=== PATIENT | female | born 2000 | race Two or more races ===

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

== ENCOUNTER 2021-07-16 11:59 | Emergency (ER) | payer SELFPAY ==
[~2021-07-16] VITALS: Ht 160 cm; Wt 81.8 kg
[~2021-07-16 11:59] MED LIST changes: +HYDR-3164 PO; +PHEN100T82 PO
--- NOTE | 2021-07-16 12:40 | PHYS DOC ---
Past Medical History Past Medical History: No Pertinent History Past Surgical History: No Surgical History Smoking Status: Never Smoker Alcohol Use: None Drug Use: None Adult General Chief Complaint Chief Complaint: ABDOMINAL PAIN HPI HPI Patient is a 20 year old female who presents with pelvic pain. Has been having symptoms over the last 48 hours. Complains of intermittent episodes of pain in the lower portion of her abdomen and pelvis. No severe pain is reported. Denies urinary symptoms. Has irregular menses at baseline. She has no nausea or vomiting. No fever. No viral symptoms. No other recent illness. Denies that she has had pain similar to this in the past. Review of Systems Review of Systems Constitutional: Denies fever or chills Eyes: Denies change in visual acuity HENT: Denies nasal congestion or sore throat Respiratory: Denies cough or shortness of breath Cardiovascular: No additional information not addressed in HPI GI: as documented in HPI : no dysuria. + pelvic pain Musculoskeletal: Denies back pain or joint pain Integument: Denies rash or skin lesions Neurologic: Denies headache, focal weakness or sensory changes Endocrine: Denies polyuria All other systems were reviewed and found to be within normal limits, except as documented in this note. Current Medications Current Medications Current Medications Medications (Trade) Dose Ordered Sig/Madhavi Start Time Stop Time Status Last Admin Dose Admin Info (CONTRAST GIVEN -- Rx MONITORING) 1 each PRN DAILY PRN 07/16/21 16:15 07/18/21 16:14 Iohexol (Omnipaque 300 Mg/ml) 75 ml 1X ONCE 07/16/21 16:00 07/16/21 16:01 DC 07/16/21 16:03 75 ML Morphine Sulfate (Morphine Sulfate) 4 mg 1X ONCE 07/16/21 15:30 07/16/21 15:31 DC 07/16/21 15:43 4 MG Ondansetron HCl (Zofran) 4 mg 1X ONCE 07/16/21 15:30 07/16/21 15:31 DC 07/16/21 15:43 4 MG Allergies Allergies Allergies Coded Allergies Type Severity Reaction Last Updated Verified No Known Drug Allergies 10/30/18 No Physical Exam Physical Exam Constitutional: Well developed, well nourished, no acute distress, non-toxic appearance HENT: bilateral external ears normal, oropharynx moist, no oral exudates, nose normal Eyes: PERRLA, EOMI, conjunctiva normal, no discharge. Neck: Normal range of motion Cardiovascular:Heart rate regular rhythm, no murmur Lungs & Thorax: Bilateral breath sounds clear to auscultation Abdomen: Bowel sounds normal, soft, no tenderness, no masses Skin: Warm, dry, no erythema, no rash. Back: Normal ROM. No flank TTP Extremities: No tenderness, no cyanosis, no clubbing, ROM intact, no edema Neurologic: Alert and oriented X 3, normal motor function Current Patient Data Vital Signs Vital Signs Date Time Temp Pulse Resp B/P (MAP) Pulse Ox O2 Delivery O2 Flow Rate FiO2 07/16/21 15:43 16 98 Room Air 07/16/21 12:45 100.2 115 128/75 (92) 100.2 Lab Values Laboratory Tests Test 07/16/21 12:49 07/16/21 12:52 07/16/21 15:35 Urine Collection Type Unknown Urine Color [place]annette Urine Clarity Cloudy Urine pH 5.5 (<5.0-8.0) Urine Specific [place] >=1.030 (1.000-1.030) Urine Protein 30 mg/dL (NEG-TRACE) Urine Glucose (UA) Negative mg/dL (NEG) Urine Ketones (Stick) 15 mg/dL (NEG) Urine Blood Negative (NEG) Urine Nitrite Negative (NEG) Urine Bilirubin Small (NEG) Urine Urobilinogen Dipstick 0.2 mg/dL (0.2 mg/dL) Urine Leukocyte Esterase Negative (NEG) Urine RBC 0 /HPF (0-2) Urine WBC 1-4 /HPF (0-4) Urine Squamous Epithelial Cells Mod /LPF Urine Bacteria Few /HPF (0-FEW) Urine Mucus Mod /LPF POC Urine HCG, Qualitative Hcg negative (Negative) White Blood Count 6.0 x10^3/uL (4.0-11.0) Red Blood Count 4.97 x10^6/uL (3.50-5.40) Hemoglobin 12.5 g/dL (12.0-15.5) Hematocrit 37.7 % (36.0-47.0) Mean Corpuscular Volume 76 fL (79-100) L Mean Corpuscular Hemoglobin 25 pg (25-35) Mean Corpuscular Hemoglobin Concent 33 g/dL (31-37) Red Cell Distribution Width 14.8 % (11.5-14.5) H Platelet Count 270 x10^3/uL (140-400) Neutrophils (%) (Auto) 70 % (31-73) Lymphocytes (%) (Auto) 22 % (24-48) L Monocytes (%) (Auto) 8 % (0-9) Eosinophils (%) (Auto) 0 % (0-3) Basophils (%) (Auto) 1 % (0-3) Neutrophils # (Auto) 4.2 x10^3/uL (1.8-7.7) Lymphocytes # (Auto) 1.3 x10^3/uL (1.0-4.8) Monocytes # (Auto) 0.5 x10^3/uL (0.0-1.1) Eosinophils # (Auto) 0.0 x10^3/uL (0.0-0.7) Basophils # (Auto) 0.0 x10^3/uL (0.0-0.2) Sodium Level 134 mmol/L (136-145) L Potassium Level 3.6 mmol/L (3.5-5.1) Chloride Level 99 mmol/L (98-107) Carbon Dioxide Level 25 mmol/L (21-32) Anion Gap 10 (6-14) Blood Urea Nitrogen 9 mg/dL (7-20) Creatinine 0.7 mg/dL (0.6-1.0) Estimated GFR (Cockcroft-Gault) 107.8 BUN/Creatinine Ratio 13 (6-20) Glucose Level 91 mg/dL (70-99) Calcium Level 8.2 mg/dL (8.5-10.1) L Total Bilirubin 0.3 mg/dL (0.2-1.0) Aspartate Amino Transferase (AST) 16 U/L (15-37) Alanine Aminotransferase (ALT) 20 U/L (14-59) Alkaline Phosphatase 96 U/L (46-116) Total Protein 7.4 g/dL (6.4-8.2) Albumin 2.9 g/dL (3.4-5.0) L Albumin/Globulin Ratio 0.6 (1.0-1.7) L Laboratory Tests 07/16/21 15:35 Laboratory Tests 07/16/21 15:35 EKG EKG [] Radiology/Procedures Radiology/Procedures [] Course & Med Decision Making Course & Med Decision Making Pertinent Labs and Imaging studies reviewed. (See chart for details) Ms. Perez is evaluated on arrival to her room. She has no distress. Her abdominal exam is entirely benign. Urinalysis is ordered. UCG also pending 13:35: UA completed and no infection. Patient is not . Pelvic ultrasound ordered. 15:15: All results are reviewed. Ultrasound of the pelvis does not reveal acute findings or source for her pain. Urinalysis is also nonacute. CT scan is ordered for further evaluation. We will place IV and give medications for pain. Will also do lab work. Patient complains of some intensifying pain primarily in the right lower quadrant. She continues to be in no acute distress 16:35: All results are reviewed and discussed with the patient. CT scan returns with some nonspecific bowel wall inflammation and associated lymphadenopathy. Her examination continues to be benign and she is subjectively tender. Nonperitoneal. Will empirically placed on Augmentin for treatment of colitis. Recommended she follow-up with primary care physician. Come back to the ER for any new or severely worsening symptoms. No indication for additional studies or work-up today. Given some medication for nausea and pain at home as well. Dragon Disclaimer Dragon Disclaimer This electronic medical record was generated, in whole or in part, using a voice recognition dictation system. Departure Departure Disposition: HOME / SELF CARE / HOMELESS Condition: GOOD Referrals: NO PCP (PCP) Patient Instructions: Colitis Scripts Ibuprofen (IBUPROFEN) 800 Mg Tablet 800 MG PO PRN TID PRN for PAIN, #21 TAB take with food or milk to avoid upsetting stomach Prov: KAYLEIGH STERN DO 07/16/21 Amoxicillin/Potassium Clav (AUGMENTIN 875-125 TABLET) 1 Each Tablet 1 TAB PO BID for 10 Days, #20 TAB 0 Refills Prov: KAYLEIGH STERN DO 07/16/21 KAYLEIGH STERN DO Jul 16, 2021 12:40
[2021-07-16 13:03] LABS: BILIRUBIN,URINE SMALL (NEG); CLARITY,URINE CLOUDY; COLOR,URINE AMBER; NITRITE,URINE NEGATIVE (NEG); PH,URINE 5.5 (<5.0-8.0); PROTEIN,URINE 30 mg/dL (NEG-TRACE); UROBILINOGEN,URINE 0.2 mg/dL (0.2 mg/dL)
[2021-07-16 13:15] LABS: BACTERIA,URINE FEW /HPF (0-FEW); RBC,URINE 0 /HPF (0-2)
--- NOTE | 2021-07-16 15:05 | RAD ---
Pelvic ultrasound 07/16/2021 CLINICAL HISTORY: Pelvic pain for 3 days. TECHNIQUE: Using the distended urinary bladder as a sonographic window, a real-time ultrasound examin ation of the pelvis was performed. Multiple images were obtained. FINDINGS: The uterus is within normal limits in size and echogenicity. It measures 7.2 x 4.9 x 4.6 cm in longitudinal, transverse, and AP dimensions. The endometrial echo complex measures 1.1 cm in thic kness which is within normal limits. No focal abnormality of the uterus is seen. Both ovaries are within normal limits in size and echogenicity. The right ovary measures 3.6 x 2.9 x 2.2 cm in size. The left ovary measures 3.7 x 2.1 x 2.1 cm in size. Normal color-flow and pulse doppl er imaging to both ovaries is seen. No adnexal mass is noted. No free fluid is seen. IMPRESSION: Negative study. Electronically signed by: Ty Jackson MD (07/16/2021 3:02 PM) [id number]
[2021-07-16] MEDS ORDERED: MORPHINE SULFATE 4 MG/ML INJ. IVP ONE (15:30)
[2021-07-16] MEDS ORDERED: ONDANSETRON PF 4 MG/2 ML VIAL. IVP ONE (15:30)
[2021-07-16] MEDS ORDERED: IOHEXOL 300 MG/ML 100ML VIAL. IV ONE (16:00)
[2021-07-16 16:02] LABS: BASO % 1 % (0-3); EOS % 0 % (0-3); HEMATOCRIT 37.7 % (36.0-47.0); HEMOGLOBIN 12.5 g/dL (12.0-15.5); LYMPH # 1.3 x10^3/uL (1.0-4.8); LYMPH % 22 % (24-48); MEAN CORPUSCULAR HEMOGLOBIN 25 pg (25-35); MEAN CORPUSCULAR HGB CONC 33 g/dL (31-37); MEAN CORPUSCULAR VOLUME 76 fL (79-100); MONO # 0.5 x10^3/uL (0.0-1.1); MONO % 8 % (0-9); NEUT # 4.2 x10^3/uL (1.8-7.7); NEUT % 70 % (31-73); PLATELET COUNT 270 x10^3/uL (140-400); RED BLOOD COUNT 4.97 x10^6/uL (3.50-5.40); RED CELL DISTRIBUTION WIDTH 14.8 % (11.5-14.5)
[2021-07-16 16:05] LABS: CALCIUM 8.2 mg/dL (8.5-10.1); CREATININE 0.7 mg/dL (0.6-1.0); GFR 107.8; POTASSIUM 3.6 mmol/L (3.5-5.1)
[2021-07-16] MEDS ORDERED: CONTRAST GIVEN. MC PRN (16:15)
[2021-07-16 16:17] LABS: ALBUMIN 2.9 g/dL (3.4-5.0); ALBUMIN/GLOBULIN RATIO 0.6 (1.0-1.7); TOTAL BILIRUBIN 0.3 mg/dL (0.2-1.0); TOTAL PROTEIN 7.4 g/dL (6.4-8.2)
--- NOTE | 2021-07-16 16:32 | RAD ---
INDICATION: Reason: lower abd pain. Eval for appendicitis / Spl. Instructions: [id number] 75ML / History: COMPARISON: None. TECHNIQUE: Axial CT images were obtained through the abdomen and pelvis with intravenous contrast. One or more of the following individualized dose reduction techniques were utilized for this examinat ion: 1. Automated exposure control; 2. Adjustment of the mA and/or kV according to patient size; 3 . Use of iterative reconstruction technique. FINDINGS: Calcified granuloma right lower lung. Vascular: No abdominal aortic aneurysm. Hepatobiliary: Liver is borderline low density. Nonspecific but can be seen with fatty infiltration. Pancreas: No peripancreatic edema. Spleen: Spleen unremarkable. Renal/Bladder: No hydronephrosis. Gastrointestinal: Wall thickening of the proximal colon extending on the right side of the colon and involving a portion of the transverse colon. There is also some wall thickening and adjacent edema as well as free fluid at the distal ileum. No periappendiceal inflammatory changes. There is some prominent lymph nodes seen adjacent to the inflamed loops of bowel within the mesentery . No dilated loops of bowel to suggest obstruction. IMPRESSION: * Wall thickening and adjacent edema at the right-sided colon as well as a portion of the small bow el. This could be secondary to either active infectious or inflammatory bowel disease including Crohn 's within differential. Ischemic bowel disease would be unlikely in a patient of this age. * Lymphadenopathy is identified adjacent to the inflamed loops of bowel. This may be reactive in adriana ure but follow-up could be obtained to ensure this appropriately resolves to exclude any less common neoplastic causes. Electronically signed by: Chet Barnes MD (07/16/2021 4:29 PM) [id number]
[2021-07-16 16:38] VITALS: BP 112/65
[2021-07-16] MEDS ORDERED: IBUP-1060 PO (16:39)
[2021-07-16] MEDS ORDERED: AMOX1TAB61 PO (16:39)
== END 2021-07-16 17:05 | disposition home or self-care (01) ==
LOC: ER 11:59
DX: K52.9 Noninfective gastroenteritis and colitis, unspecified (principal); N92.6 Irregular menstruation, unspecified
CPT/HCPCS: 36415; 74177; 76856; 80053; 81001; 81025; 85025; 96374; 96375; 99285; J2270; J2405; Q9967